=== PATIENT | male | born 1980 | race Caucasian/White ===

== ENCOUNTER 2018-08-28 17:42 | Emergency (ER) | payer MEDICAID ==
[~2018-08-28] VITALS: Ht 175.3 cm; Wt 64.0 kg
[2018-08-28 17:46] VITALS: BP 129/85; Ht 175.3 cm; Wt 64.0 kg
== END 2018-08-28 18:52 | disposition home or self-care (01) ==
LOC: ED 17:42
DX: G47.00 Insomnia, unspecified (principal); F15.10 Other stimulant abuse, uncomplicated; F20.9 Schizophrenia, unspecified